=== PATIENT | female | born 1940 | race African-American/Black ===

== ENCOUNTER 2020-04-22 11:03 | Inpatient (IN) ==
[2020-04-22 12:05] LABS: Basophils % 0.8 % (0.0-0.8); Eosinophils # 0.1 10*3/uL (0.0-0.87); Eosinophils % 2.2 % (0.00-10.9); Hematocrit 46.5 VOL% (35.7-47.0); Hemoglobin 14.5 GM/DL (12.0-16.0); Immature Granulocytes % 0.2 %; Immature Granulocytes Absolute 0.01 #; Lymphocytes # 2.4 10*3/uL (1.4-4.0); Lymphocytes % 48.3 % (21.3-54.2); Mean Corpuscular HGB Conc 31.2 GM/DL (32-36); Mean Platelet Volume 10.8 FL (9.6-12.0); Monocytes % 12.6 % (1.7-12.7); Neutrophils % 35.9 % (38.7-73.9); Platelet Count 222 T/CUMM (130-400); Red Blood Count 5.47 MC/CUMM (3.8-5.5); Red Cell Distribution Width 13.4 % (9.3-17.3); White Blood Count 4.9 T/CUMM (4-12)
[2020-04-22] MEDS ORDERED: carvediloL 6.25 MG TABLET PO SCH (12:05)
[2020-04-22 12:27] LABS: Eosinophils 3 % (0-10); Lymphocytes 48 % (20-55); Segmented Neutrophils 33 % (50-85); Total Cells Counted 100
[2020-04-22 12:28] LABS: Atypical Lymphocytes Few; Hypochromasia 1+; Platelet Estimate Normal
[2020-04-22 12:31] LABS: PT Patient Result 11.2 SECS (9.8-11.9); Partial Thromboplastin Time 27.8 SECS (23.9-33.8)
[2020-04-22] MEDS ORDERED: ASCORBIC ACID 500 MG TABLET PO SCH (14:06)
[2020-04-22] MEDS ORDERED: ASPIRIN EC 81 MG TABLET PO SCH (14:08)
[2020-04-22] MEDS ORDERED: SODIUM CHLORIDE 0.45% 1,000 ML IV SCH (14:30)
[2020-04-22 14:42] LABS: Alanine Aminotransferase 34 U/L (13-56); Albumin 2.9 G/DL (3.4-5.0); Alkaline Phosphatase 40 U/L (45-117); Aspartate Amino Transferase 25 U/L (0-37); Bilirubin,Total < 0.39 MG/DL (0.2-1.0); Blood Urea Nitrogen 8 MG/DL (7-18); Calcium 7.1 MG/DL (8.5-10.1); Carbon Dioxide 18 MMOL/L (21-32); Estimated Glom Filtration Rate 95 ML/MIN; Glucose 77 MG/DL (74-106); Osmolality,Calculated 301.4 MOS/KG (273-304); Potassium 3.1 MMOL/L (3.5-5.1); Sodium 154 MMOL/L (136-145); Total Protein 6.1 G/DL (6.4-8.3)
[2020-04-22 14:54] LABS: Thyroid Stimulating Hormone 2.55 uIU/ml (0.358-3.74)
[2020-04-22] MEDS ORDERED: POTASSIUM CHLORIDE 20 MEQ TABLET PO STA (15:16)
[2020-04-22] MEDS ORDERED: ONDANSETRON 4 MG/2 ML VIAL IV PRN (17:05)
[2020-04-22] MEDS ORDERED: ACETAMINOPHEN 325 MG TABLET PO PRN (17:05)
[2020-04-22 18:24] LABS: Calcium 9.2 MG/DL (8.5-10.1); Osmolality,Calculated 277.4 MOS/KG (273-304); Potassium 4.2 MMOL/L (3.5-5.1)
[2020-04-22] MEDS ORDERED: METOPROLOL TARTRATE 5 MG/5 ML VIAL IV ONE (19:12)
[2020-04-22] MEDS: DOCUSATE SODIUM 100 MG CAPSULE PO SCH (20:34)
[2020-04-22] MEDS ORDERED: carvediloL 6.25 MG TABLET PO ONE (23:00)
[2020-04-23 06:31] LABS: Basophils % 0.5 % (0.0-0.8); Eosinophils # 0.1 10*3/uL (0.0-0.87); Eosinophils % 2.3 % (0.00-10.9); Hematocrit 43.6 VOL% (35.7-47.0); Hemoglobin 13.3 GM/DL (12.0-16.0); Immature Granulocytes % 0.2 %; Immature Granulocytes Absolute 0.01 #; Lymphocytes % 45.2 % (21.3-54.2); Mean Corpuscular HGB Conc 30.5 GM/DL (32-36); Mean Corpuscular Volume 86.7 FL (87-102); Mean Platelet Volume 10.1 FL (9.6-12.0); Monocytes % 13.5 % (1.7-12.7); Neutrophils % 38.3 % (38.7-73.9); Platelet Count 191 T/CUMM (130-400); Red Blood Count 5.03 MC/CUMM (3.8-5.5); Red Cell Distribution Width 13.6 % (9.3-17.3); White Blood Count 4.3 T/CUMM (4-12)
[2020-04-23 06:50] LABS: Calcium 9.1 MG/DL (8.5-10.1); Osmolality,Calculated 276.5 MOS/KG (273-304); Potassium 4.1 MMOL/L (3.5-5.1)
[2020-04-23 06:53] LABS: Eosinophils 5 % (0-10); Lymphocytes 48 % (20-55); Segmented Neutrophils 40 % (50-85); Total Cells Counted 100
[2020-04-23 06:54] LABS: Hypochromasia 1+; Platelet Estimate Adequate
[2020-04-23 06:55] LABS: Atypical Lymphocytes Few
[2020-04-23] MEDS ORDERED: POTASSIUM CHLORIDE RIDER 10 MEQ in PREMIX 1 EACH IV PRN (08:14)
[2020-04-23] MEDS ORDERED: MAGNESIUM SULF RIDER 2 GM in PREMIX 1 EACH IV PRN (08:14)
[2020-04-23] MEDS ORDERED: MAGNESIUM SULF RIDER 2 GM in PREMIX 1 EACH IV ONE (08:39)
[2020-04-23] MEDS: carvediloL 6.25 MG TABLET PO SCH ×2 (08:56→17:19)
[2020-04-23] MEDS: DOCUSATE SODIUM 100 MG CAPSULE PO SCH ×2 (08:58→20:13)
[2020-04-23] MEDS ORDERED: PANTOPRAZOLE 40 MG TABLET PO SCH (09:00)
[2020-04-23] MEDS ORDERED: MAGNESIUM OXIDE 400 MG TABLET PO SCH (09:00)
[2020-04-23] MEDS ORDERED: HEPARIN/NACL 0.9% 2 UNITS/ML 1,500 ML IV ONE (09:17)
[2020-04-23] MEDS ORDERED: LIDOCAINE 1% 20 ML VIAL ONE (09:17)
[2020-04-23] MEDS ORDERED: diphenhydrAMINE CAP 25 MG CAPSULE ONE (09:30)
[2020-04-23] MEDS ORDERED: MIDAZOLAM 2 MG/2 ML VIAL ONE (10:00)
[2020-04-23] MEDS ORDERED: fentaNYL 100 MCG/2 ML VIAL ONE (10:00)
[2020-04-23] MEDS ORDERED: NITROGLYCERIN DRIP 50 MG/250 ML BOTTLE IV ONE (10:29)
[2020-04-23] MEDS ORDERED: diphenhydrAMINE CAP 25 MG CAPSULE PO ONE (10:30)
[2020-04-23] MEDS ORDERED: DIAZEPAM 5 MG TABLET PO ONE (10:30)
[2020-04-23] MEDS ORDERED: AMIODARONE INJ 150 MG in DEXTROSE 5% 100 ML IV ONE (11:06)
[2020-04-23] MEDS: AMIODARONE 200 MG TABLET PO SCH ×2 (12:51→20:13)
[2020-04-24 05:42] LABS: Basophils % 0.4 % (0.0-0.8); Eosinophils # 0.1 10*3/uL (0.0-0.87); Eosinophils % 2.4 % (0.00-10.9); Hematocrit 41.1 VOL% (35.7-47.0); Lymphocytes # 1.7 10*3/uL (1.4-4.0); Lymphocytes % 37.3 % (21.3-54.2); Mean Corpuscular HGB Conc 31.6 GM/DL (32-36); Mean Corpuscular Volume 84.9 FL (87-102); Mean Platelet Volume 10.2 FL (9.6-12.0); Monocytes % 14.4 % (1.7-12.7); Neutrophils % 45.5 % (38.7-73.9); Platelet Count 176 T/CUMM (130-400); Red Blood Count 4.84 MC/CUMM (3.8-5.5); Red Cell Distribution Width 13.6 % (9.3-17.3); White Blood Count 4.5 T/CUMM (4-12)
[2020-04-24 06:08] LABS: Calcium 8.8 MG/DL (8.5-10.1); Osmolality,Calculated 279.4 MOS/KG (273-304); Potassium 4.4 MMOL/L (3.5-5.1)
[2020-04-24] MEDS: AMIODARONE 200 MG TABLET PO SCH (08:44)
[2020-04-24] MEDS: carvediloL 6.25 MG TABLET PO SCH (08:44)
[2020-04-24] MEDS: DOCUSATE SODIUM 100 MG CAPSULE PO SCH (08:45)
[2020-04-24] MEDS ORDERED: ASPIRIN EC 81 MG TABLET PO SCH (09:00)
[2020-04-24] MEDS ORDERED: ISOSORBIDE MONONITRATE 60 MG TABLET PO SCH (09:00)
[2020-04-24 12:04] VITALS: BP 125/78
== END 2020-04-24 14:40 | disposition home or self-care (01) | DRG 287 ==
LOC: N.ED 11:03 → N.EDINP 15:13 → N.TELES 17:46
PROVIDERS: ADMIT Family Medicine; ATTEND Family Medicine
PROC: CLCCHCL (ICD-10-PCS; 2020-04-23 11:15)